=== PATIENT | female | born 1935 | race Caucasian/White ===

== ENCOUNTER 2017-07-29 09:39 | Outpatient (CLI) | payer MEDICARE ==
[2017-07-29 10:58] LABS: Hemoglobin 12.3 g/dL (12.0-16.0); Mean Corpuscular HGB CONC 33.9 g/dL (32.0-36.0); Mean Corpuscular Hemoglobin 29.5 pg (27.0-31.0); Mean Platelet Volume 6.4 fL (7.4-10.4); Platelet Count 312 thou/uL (130-400); RBC Distribution Width 12.7 % (11.5-14.5); Red Blood Cell (RBC) Count 4.17 mill/uL (4.20-5.40); White Blood Cell (WBC) Count 8.3 thou/uL (4.8-10.8)
[2017-07-29 11:14] LABS: Anion Gap 14 mmol/L (10-20); BUN (Urea Nitrogen) 20 mg/dL (9.8-20.1); Calc. Creatinine Clearance 0 mL/min (70-130); Calcium 9.6 mg/dL (7.8-10.44); Carbon Dioxide 26 mmol/L (23-31); Chloride 106 mmol/L (98-107); Estimated GFR-MDRD 36; Glucose 85 mg/dL (83-110); Sodium 142 mmol/L (136-145)
[2017-07-29 11:16] LABS: PTT 30.5 SEC (22.9-36.1); Prothrombin Time 13.5 SEC (12.0-14.7)
--- NOTE | 2017-09-27 21:48 | EKG ---
Test Reason : Blood Pressure : / mmHG Vent. Rate : 051 BPM Atrial Rate : 051 BPM P-R Int : 144 ms QRS Dur : 094 ms QT Int : 466 ms P-R-T Axes : 038 006 -10 degrees QTc Int : 429 ms Sinus bradycardia Nonspecific ST-T changes Abnormal ECG When compared with ECG of 19-DEC-2015 11:16, No significant change was found Confirmed by FABRICIO ARAUJO M.D. ([id number]) on 09/27/2017 9:48:30 PM Referred By: CESAR Confirmed By:FABRICIO ARAUJO M.D.
== END 2017-07-29 09:40 | disposition home or self-care (01) ==
LOC: LABBT 09:39
PROVIDERS: ATTEND Urology
DX: Z01.812 Encounter for preprocedural laboratory examination (principal); D49.4 Neoplasm of unspecified behavior of bladder; Z85.51 Personal history of malignant neoplasm of bladder
CPT/HCPCS: 80048; 85027; 85610; 85730; 93005; 93010

== ENCOUNTER 2017-08-02 08:31 | Day surgery (SDC) | payer MEDICARE ==
[2017-08-02] MEDS ORDERED: Iothalamate Meglumine 60% 50 ML VIAL FS ONE (11:28)
[2017-08-02] MEDS ORDERED: Levofloxacin 500 mg/D5W 100 ml Premix Bag ONE (11:59)
[2017-08-02] MEDS ORDERED: Fentanyl 100 MCG/2 ML VIAL ONE (13:07)
[2017-08-02] MEDS ORDERED: Propofol 500 MG/50 ML VIAL ONE (13:43)
--- NOTE | 2017-08-02 15:20 | RAD ---
RETROGRADE IVP: HISTORY: An 81-year-old female. Ureteral stones. COMPARISON: 12/23/2015 FINDINGS: No clinical study manager film is available. There is injection of the right ureter and left ureter. there is again noted to be a somewhat prominent complex calyx in the right upper pole. No evidence for obstruction or calculus. IMPRESSION: 1. Stable retrograde intravenous pyelogram. 2. Stable, slightly prominent complex right upper pole renal calyx. 3. No evidence for genitourinary calculus. 4. Stable from prior study. POS: JEFFREY
[2017-08-02] MEDS ORDERED: PROPOFOL 200 MG/20 ML VIAL ONE (15:35)
[2017-08-02] MEDS ORDERED: Lidocaine 1% PF 5 ML VIAL ONE (15:35)
--- NOTE | 2017-08-02 22:13 | OP ---
DATE: 08/02/2017 PREOPERATIVE DIAGNOSIS: Bladder lesion, history of noninvasive bladder cancer. POSTOPERATIVE DIAGNOSIS: Bladder lesion, history of noninvasive bladder cancer. PROCEDURE PERFORMED: Cystoscopy bilateral retrogrades, transurethral resection of bladder tumor. SURGEON: Dr. Jose Edgar ANESTHESIA: Spinal at the patient's request. ESTIMATED BLOOD LOSS: Less than 50 mL. DRAINS PLACED: An 18-Namibian Sadlaña catheter. FINDINGS: She had an area of cobblestoning papillary flat appearing abnormal bladder mucosa near the left ureteral orifice, but not involving it. This was resected and then cauterized the edges and ba se. It was not at all on a stalk but more flat appearing abnormal mucosal pattern. Retrograde study did not show any abnormalities to my review. OPERATIVE TECHNIQUE: After obtaining written and verbal consent from the patient after receiving IV Levaquin, she was taken to the operating suite. She was given a spinal anesthetic, and when this had taken good effect, was placed in the dorsal lithotomy position and sterilely prepped and draped. Manuel rosen had PlexiPulses placed on her lower extremities when she arrived in the OR. Cystoscopy was perform ed with a 22-Namibian sheath. This was well lubricated and advanced under direct vision through the fe male urethra into the urinary bladder with the aid of a 30 degree lens and a video camera and monitor . The bladder was filled and emptied a number of times and examined with both a 30 and 70 degree chinyere s with the findings above. Using a 30-degree lens, we flushed a 5 Namibian Pollack catheter with contr ast and placed in the left ureteral orifice and injected contrast in a retrograde manner filling out the ureter and upper collecting system. This was done initially on the right side, not the left, use d about 15 mL of contrast, this area seemed to drain well. The left side was then done after the rig ht side with 15 mL of contrast also. It also drained well. There were no persistent filling defects or abnormalities, no evidence of obstruction. At this point, the instruments were removed and a 26 Namibian resectoscope sheath with visual obturator was passed via a 30 degree lens into the bladder. A n [employer] resectoscope with a gyrus bladder loop and a 30-degree lens and a gyrus generator were use d and the whole bladder was reinspected. The area of abnormality was resected near the left, but not involving the left ureteral orifice. We Elliked out this tissue, then coagulated the base of the re sected site as well as the edges. The instruments were then removed. The patient had a Saldaña cathet er placed with 10 mL in the balloon. It was hooked up to drainage bag, which secured to her right th igh and no traction. She was then awakened and extubated and taken by stretcher to the recovery room .
== END 2017-08-02 17:25 | disposition home or self-care (01) ==
LOC: SDC 08:31
PROVIDERS: ATTEND Urology
PROC: 0TBB8ZX Excision of Bladder, Via Natural or Artificial Opening Endoscopic, Diagnostic (ICD-10-PCS; principal; 2017-08-02)
DX: N30.30 Trigonitis without hematuria (principal); N32.89 Other specified disorders of bladder; Z88.5 Allergy status to narcotic agent; Z88.8 Allergy status to other drugs, medicaments and biological substances; Z85.51 Personal history of malignant neoplasm of bladder
CPT/HCPCS: 52224; 74420; 88305; C1758; J0131; J1956; J2001; J2704; J3010; Q9961

== ENCOUNTER 2017-12-03 11:19 | Outpatient (CLI) | payer MEDICARE | END 2017-12-03 11:20 | disposition home or self-care (01) | LOC: BICMAMMO 11:19 | PROVIDERS: ATTEND Nurse Practitioner | DX: Z12.31 Encounter for screening mammogram for malignant neoplasm of breast (principal); Z85.41 Personal history of malignant neoplasm of cervix uteri | CPT/HCPCS: 77063; 77067 ==

== ENCOUNTER 2018-12-05 09:55 | Outpatient (CLI) | payer MEDICARE ==
--- NOTE | 2018-12-05 11:13 | MMO ---
Bilateral MAMMO Bilat Screen [facility]. CLINICAL HISTORY: Patient is 83 years old and is seen for screening. The patient has no family history of breast cancer. The patient has a history of right needle biopsy - benign - UNKNOWN YEAR. VIEWS: The views performed were: bilateral craniocaudal with tomosynthesis and bilateral mediolateral oblique with tomosynthesis. FILMS COMPARED: The present examination has been compared to a prior imaging study performed at [facility] on 12/03/2017. MAMMOGRAM FINDINGS: There are scattered fibroglandular densities. There are stable benign appearing calcifications seen in both breasts. There are no suspicious masses, suspicious calcifications, or new areas of architectural distortion. IMPRESSION: THERE IS NO MAMMOGRAPHIC EVIDENCE OF MALIGNANCY. A ROUTINE FOLLOW-UP MAMMOGRAM IN 1 YEAR IS RECOMMENDED. THE RESULTS OF THIS EXAM WERE SENT TO THE PATIENT. ACR BI-RADS Category 2 - Benign finding MAMMOGRAPHY NOTE: 1. A negative mammogram report should not delay a biopsy if a dominant of clinically suspicious mass is present. 2. Approximately 10% to 15% of breast cancers are not detected by mammography. 3. Adenosis and dense breasts may obscure an underlying neoplasm.
== END 2018-12-05 09:56 | disposition home or self-care (01) ==
LOC: BICMAMMO 09:55
PROVIDERS: ATTEND Nurse Practitioner
DX: Z12.31 Encounter for screening mammogram for malignant neoplasm of breast (principal); Z91.89 Other specified personal risk factors, not elsewhere classified
CPT/HCPCS: 77063; 77067

== ENCOUNTER 2020-01-02 10:24 | Outpatient (CLI) | payer MEDICARE ==
--- NOTE | 2020-01-02 11:01 | MMO ---
Bilateral MAMMO Bilat Screen [facility]. CLINICAL HISTORY: Patient is 84 years old and is seen for screening. The patient has no family history of breast cancer. The patient has no personal history of cancer. The patient has a history of right needle biopsy - benign - UNKNOWN YEAR. VIEWS: The views performed were: bilateral craniocaudal with tomosynthesis and bilateral mediolateral oblique with tomosynthesis. FILMS COMPARED: The present examination has been compared to prior imaging studies performed at [facility] on 10/28/2015, 11/16/2016, 12/03/2017 and 12/05/2018. This study has been interpreted with the assistance of computer-aided detection. MAMMOGRAM FINDINGS: There are scattered fibroglandular densities. There are stable benign appearing calcifications seen in both breasts. There are also vascular calcifications. Right biopsy clip. There are no suspicious masses, suspicious calcifications, or new areas of architectural distortion. IMPRESSION: THERE IS NO MAMMOGRAPHIC EVIDENCE OF MALIGNANCY. A ROUTINE FOLLOW-UP MAMMOGRAM IN 1 YEAR IS RECOMMENDED. THE RESULTS OF THIS EXAM WERE SENT TO THE PATIENT. ACR BI-RADS Category 2 - Benign finding MAMMOGRAPHY NOTE: 1. A negative mammogram report should not delay a biopsy if a dominant of clinically suspicious mass is present. 2. Approximately 10% to 15% of breast cancers are not detected by mammography. 3. Adenosis and dense breasts may obscure an underlying neoplasm. Reported by: ELANA TURPIN MD Electonically Signed: [id number]
== END 2020-01-02 10:25 | disposition home or self-care (01) ==
LOC: BICMAMMO 10:24
PROVIDERS: ATTEND Nurse Practitioner
DX: Z12.31 Encounter for screening mammogram for malignant neoplasm of breast (principal); Z91.89 Other specified personal risk factors, not elsewhere classified
CPT/HCPCS: 77063; 77067

== ENCOUNTER 2021-01-03 09:35 | Outpatient (CLI) | payer MEDICARE | END 2021-01-03 09:36 | disposition home or self-care (01) | LOC: BICMAMMO 09:35 | PROVIDERS: ATTEND Internal Medicine | DX: Z12.31 Encounter for screening mammogram for malignant neoplasm of breast (principal); Z91.89 Other specified personal risk factors, not elsewhere classified | CPT/HCPCS: 77063; 77067 ==

== ENCOUNTER 2022-01-19 10:08 | Outpatient (CLI) | payer MEDICARE | END 2022-01-19 10:09 | disposition home or self-care (01) | LOC: BICMAMMO 10:08 | PROVIDERS: ATTEND Internal Medicine | DX: Z12.31 Encounter for screening mammogram for malignant neoplasm of breast (principal); Z85.51 Personal history of malignant neoplasm of bladder; Z91.89 Other specified personal risk factors, not elsewhere classified | CPT/HCPCS: 77063; 77067 ==

== ENCOUNTER 2022-10-23 09:10 | Outpatient (CLI) | payer MEDICARE | END 2022-10-23 09:11 | disposition home or self-care (01) | LOC: SCSMRI 09:10 | PROVIDERS: ATTEND Nurse Practitioner Family | DX: M47.26 Other spondylosis with radiculopathy, lumbar region (principal); M47.815 Spondylosis without myelopathy or radiculopathy, thoracolumbar region; M47.817 Spondylosis without myelopathy or radiculopathy, lumbosacral region; M51.35 Other intervertebral disc degeneration, thoracolumbar region; M48.05 Spinal stenosis, thoracolumbar region; M51.36 Other intervertebral disc degeneration, lumbar region; M25.78 Osteophyte, vertebrae; M48.062 Spinal stenosis, lumbar region with neurogenic claudication; M48.07 Spinal stenosis, lumbosacral region | CPT/HCPCS: 72148 ==